=== PATIENT | male | born 1935 | race Caucasian/White ===

== ENCOUNTER 2016-12-10 17:11 | Observation (INO) | payer OTHER ==
[~2016-12-10] VITALS: Ht 172.7 cm; Wt 79.9 kg
[~2016-12-10 17:11] MED LIST: ACID CONTROL150 MG PO; ADULT LOW DOSE81 M1 PO; AMLODIPINE-ATO1 EACH; APPLE CIDER VI300 MG PO; ASPIR 8181 M1 PO; ASPIR-LOW81 MG PO; ASPIRIN81 M1 PO; ATORVASTATIN CA10 MG PO; CADUET PO; CALCIUM + D 601 EACH PO; CALCIUM + D TA1 EACH PO; CALCIUM 600 +1 EAC1 PO; CALCIUM 600 +1 EAC2 PO; CHERATUSSIN AC473 ML PO; DYAZIDE, MA1 CAPSULE PO; FISH OIL 1,0001 EAC7 PO; FISH OIL SOFTG1 EACH PO; FLOMAX0.4 M1 PO; FLOMAX0.4 MG PO; FLULAVAL; LISINOPRIL20 MG; LO-DOSE ASPIRIN81 M1 PO; LOPRESSOR100 M1 PO; LOPRESSOR25 MG; LOSARTAN POTASS50 MG PO; MEN'S MULTI-VI1 EACH PO; METOPROLOL SUCC25 MG PO; METOPROLOL TAR100 MG PO; METOPROLOL TART25 MG; METOPROLOL TART50 MG PO; MULTI COMPLETE1 EACH PO; NITROSTAT0.4 MG; NITROSTAT0.4 MG SL; OMEGA III EPA1000 MG PO; OMEGA-31000 M1 PO; OMNICEF300 MG PO; ONE DAILY FOR1 EAC2 PO; ONE DAILY MULT1 EAC1 PO; ONE-A-DAY ESSE1 EAC1 PO; PANTOPRAZOLE SO40 MG; PANTOPRAZOLE SO40 MG PO; PRINIVIL20 MG PO; PROTONIX40 MG PO; SALINE NASAL SP45 ML BOTH NARES; TAMSULOSIN HCL0.4 MG; TAMSULOSIN HCL0.4 MG PO; THERAGRAN1 TABLET PO; XARELTO20 MG PO; ZANTAC150 M1 PO; ZESTRIL,PRINIVI20 MG PO
[2016-12-10 18:49] LABS: HEMATOCRIT 32.2 % (38.0-50.0); MCH 30.4 PG (29.0-34.0); MCHC 32.9 G/DL (30.0-36.0); MCV 92.3 FL (86-99); MEAN PLAT.VOLUME 10.2 uM^3 (9.0-12.4); PLATELET COUNT 210 K/uL (156-360); RBC DIS.WIDTH-CV 12.5 % (11.8-14.6); RED BLOOD COUNT 3.49 M/uL (4.00-5.50); WHITE BLOOD COUNT 5.3 K/uL (4.1-10.2)
[2016-12-10 19:01] LABS: INTER. NORMALIZED RATIO 1.1; PROTHROMBIN TIME 11.4 (9.2-11.2); PTT 27.3 (25-32)
[2016-12-10 19:10] LABS: TROP-I INTERPRETATION NEGATIVE; TROPONIN-I < 0.01 ng/mL (0.0-0.30)
[2016-12-10 19:24] LABS: CHLORIDE 100 mEq/L (99-109); POTASSIUM 4.4 mEq/L (3.7-5.4); SODIUM 132 mEq/L (136-147)
[2016-12-10 19:26] LABS: GLUCOSE 98 mg/dL (70-99)
[2016-12-10 19:27] LABS: ANION GAP 8 MEQ/L (2-14)
[2016-12-10 19:30] LABS: GFR ESTIMATE (CALCULATED) > 59 mL/min/
[2016-12-10 19:31] LABS: UREA NITROGEN (BUN) 27 mg/dL (9-23)
[2016-12-10] MEDS ORDERED: FISH OIL300 MG PO (19:37)
[2016-12-10] MEDS ORDERED: AMITIZA24 MICROGR PO (19:39)
[2016-12-10] MEDS ORDERED: RANITIDINE HCL150 M1 PO (19:41)
[2016-12-10] MEDS ORDERED: ZANTAC150 MG PO (23:00)
[2016-12-10] MEDS ORDERED: DICYCLOMINE HCL10 MG PO (23:01)
[2016-12-10] MEDS ORDERED: TYLENOL REGULA325 MG PO (23:01)
[2016-12-10 23:33] VITALS: BP 155/67
[2016-12-11 00:47] LABS: TROP-I INTERPRETATION NEGATIVE; TROPONIN-I 0.01 ng/mL (0.0-0.30)
[2016-12-11 03:55] VITALS: BP 122/56
[2016-12-11 06:46] LABS: EOSINOPHIL (%) 2.3 % (0-5); EOSINOPHIL COUNT 0.1 K/uL (0-0.3); IMMATURE GRANULOCYTE (%) 0.2 % (0.0-0.7); LYMPHOCYTE COUNT 1.1 K/uL (1.0-2.8); MCHC 33.7 G/DL (30.0-36.0); MEAN PLAT.VOLUME 10.2 uM^3 (9.0-12.4); MONOCYTE (%) 8.5 % (3-12); MONOCYTE COUNT 0.4 K/uL (0-0.8); NEUTROPHIL (%) 65.7 % (45-76); NEUTROPHIL COUNT 3.2 K/uL (1.8-6.4); PLATELET COUNT 188 K/uL (156-360); RBC DIS.WIDTH-CV 12.9 % (11.8-14.6); RBC DIS.WIDTH-SD 43.7 % (39-53); RED BLOOD COUNT 3.26 M/uL (4.00-5.50); WHITE BLOOD COUNT 4.9 K/uL (4.1-10.2)
[2016-12-11 07:15] LABS: TROP-I INTERPRETATION NEGATIVE; TROPONIN-I 0.02 ng/mL (0.0-0.30)
[2016-12-11 07:20] LABS: ANION GAP 9 MEQ/L (2-14); CHLORIDE 100 MEQ/L (99-109); GFR ESTIMATE (CALCULATED) > 59 mL/min/; GLUCOSE 86 mg/dL (70-99); IRON 94 MCG/DL (35-150); POTASSIUM 4.5 MEQ/L (3.7-5.4); SAMPLE HEMOLYSIS CHECK 0; SAMPLE ICTERIC CHECK 0; SAMPLE LIPEMIA CHECK 0; SODIUM 132 MEQ/L (136-147); UREA NITROGEN (BUN) 25 mg/dL (9-23)
[2016-12-11 08:28] VITALS: BP 154/68
[2016-12-11 12:39] VITALS: BP 158/69
== END 2016-12-11 13:17 | disposition home or self-care (01) ==
LOC: EME 17:11 → EDOF 21:44 → 5WEST 21:44 → EDOF 21:44 → 5WEST 23:17
PROVIDERS: Family Medicine; Physician Assistant
DX: R07.89 Other chest pain (principal); R10.9 Unspecified abdominal pain; I25.10 Atherosclerotic heart disease of native coronary artery without angina pectoris; Z95.5 Presence of coronary angioplasty implant and graft; Z95.0 Presence of cardiac pacemaker; I48.0 Paroxysmal atrial fibrillation; K21.9 Gastro-esophageal reflux disease without esophagitis; I10 Essential (primary) hypertension; K58.9 Irritable bowel syndrome, unspecified; Z87.891 Personal history of nicotine dependence; Z88.8 Allergy status to other drugs, medicaments and biological substances
CPT/HCPCS: 71020; 80048; 83540; 84466; 84484; 85025; 85027; 85610; 85730; 93005; 99281; 99285; G0378

== ENCOUNTER 2017-01-20 11:13 | Emergency (ER) | payer OTHER ==
[~2017-01-20] VITALS: Ht 172.7 cm; Wt 82.8 kg
[~2017-01-20 11:13] MED LIST changes: +AMITIZA24 MICROGR PO; +DICYCLOMINE HCL10 MG PO; +FISH OIL300 MG PO; +RANITIDINE HCL150 M1 PO; +TYLENOL REGULA325 MG PO; +ZANTAC150 MG PO
[2017-01-20 12:02] VITALS: BP 182/78
== END 2017-01-20 12:05 | disposition home or self-care (01) ==
LOC: EME 11:13 → RME 11:13
DX: R04.0 Epistaxis (principal); E78.5 Hyperlipidemia, unspecified; I10 Essential (primary) hypertension; I25.2 Old myocardial infarction; K21.9 Gastro-esophageal reflux disease without esophagitis; Z95.1 Presence of aortocoronary bypass graft; Z98.61 Coronary angioplasty status; Z95.0 Presence of cardiac pacemaker; Z85.828 Personal history of other malignant neoplasm of skin; Z87.891 Personal history of nicotine dependence; Z79.01 Long term (current) use of anticoagulants
CPT/HCPCS: 99281; 99284

== ENCOUNTER 2017-11-12 09:01 | Emergency (ER) | payer OTHER ==
[~2017-11-12] VITALS: Ht 172.7 cm; Wt 82.1 kg
[~2017-11-12 09:01] MED LIST changes: +CYCLOBENZAPRINE5 MG PO; -FISH OIL300 MG PO
[2017-11-12 12:41] VITALS: BP 160/65
== END 2017-11-12 12:42 | disposition home or self-care (01) ==
LOC: EME 09:01
DX: R04.0 Epistaxis (principal); S09.90XA Unspecified injury of head, initial encounter; W22.09XA Striking against other stationary object, initial encounter; Y93.89 Activity, other specified; Y92.810 Car as the place of occurrence of the external cause; K21.9 Gastro-esophageal reflux disease without esophagitis; I10 Essential (primary) hypertension; E78.5 Hyperlipidemia, unspecified; F32.9 Major depressive disorder, single episode, unspecified; I25.2 Old myocardial infarction; Z85.828 Personal history of other malignant neoplasm of skin; Z95.5 Presence of coronary angioplasty implant and graft; Z95.1 Presence of aortocoronary bypass graft; Z95.0 Presence of cardiac pacemaker; Z87.891 Personal history of nicotine dependence; Z88.5 Allergy status to narcotic agent
CPT/HCPCS: 70450; 99281; 99284

== ENCOUNTER 2018-01-11 17:01 | Emergency (ER) | payer OTHER ==
[~2018-01-11] VITALS: Ht 172.7 cm; Wt 81.7 kg
[2018-01-11 17:53] LABS: HEMATOCRIT 31.5 % (38.0-50.0); HEMOGLOBIN 10.8 G/DL (12.5-16.6); MCH 31.8 PG (29.0-34.0); MCHC 34.3 G/DL (30.0-36.0); MCV 92.6 FL (86-99); PLATELET COUNT 193 K/uL (156-360); RBC DIS.WIDTH-CV 12.3 % (11.8-14.6); RBC DIS.WIDTH-SD 42.4 % (39-53); WHITE BLOOD COUNT 5.9 K/uL (4.1-10.2)
[2018-01-11 18:06] LABS: CHLORIDE 98 mEq/L (99-109); POTASSIUM 4.4 mEq/L (3.7-5.4); SODIUM 130 mEq/L (136-147)
[2018-01-11 18:08] LABS: GLUCOSE 109 mg/dL (70-99)
[2018-01-11 18:12] LABS: CREATININE 1.3 mg/dL (0.6-1.3); GFR ESTIMATE (CALCULATED) 56 mL/min/ (58.99-99999)
[2018-01-11 18:14] LABS: TROP-I INTERPRETATION NEGATIVE; TROPONIN-I 0.01 ng/mL (0.0-0.30)
[2018-01-11 18:36] LABS: UREA NITROGEN (BUN) 25 mg/dL (9-23)
[2018-01-11 18:38] LABS: LIPASE 33 U/L (1.0-51.0)
[2018-01-11 20:59] LABS: TROP-I INTERPRETATION NEGATIVE; TROPONIN-I < 0.01 ng/mL (0.0-0.30)
[2018-01-11 21:53] VITALS: BP 165/72
== END 2018-01-11 21:56 | disposition home or self-care (01) ==
LOC: EME 17:01
PROVIDERS: Emergency Medicine
DX: K58.9 Irritable bowel syndrome, unspecified (principal); I45.10 Unspecified right bundle-branch block; I10 Essential (primary) hypertension; K21.9 Gastro-esophageal reflux disease without esophagitis; E78.5 Hyperlipidemia, unspecified; F32.9 Major depressive disorder, single episode, unspecified; I25.2 Old myocardial infarction; Z95.1 Presence of aortocoronary bypass graft; Z95.5 Presence of coronary angioplasty implant and graft; Z95.0 Presence of cardiac pacemaker; Z85.828 Personal history of other malignant neoplasm of skin; Z87.891 Personal history of nicotine dependence; Z88.5 Allergy status to narcotic agent
CPT/HCPCS: 71046; 80048; 83690; 84484; 85027; 93005; 99281; 99285

== ENCOUNTER 2018-04-02 11:34 | Observation (INO) | payer OTHER ==
[~2018-04-02] VITALS: Ht 172.7 cm; Wt 80.7 kg
[2018-04-02 12:10] LABS: HEMATOCRIT 30.8 % (38.0-50.0); HEMOGLOBIN 10.4 G/DL (12.5-16.6); MCH 31.3 PG (29.0-34.0); MCHC 33.8 G/DL (30.0-36.0); MCV 92.8 FL (86-99); PLATELET COUNT 128 K/uL (156-360); RBC DIS.WIDTH-CV 13.4 % (11.8-14.6); RBC DIS.WIDTH-SD 45.9 % (39-53); RED BLOOD COUNT 3.32 M/uL (4.00-5.50); WHITE BLOOD COUNT 5.6 K/uL (4.1-10.2)
[2018-04-02 12:41] LABS: ALBUMIN 3.8 G/DL (3.2-4.8); ALKALINE PHOSPHATASE 54 IU/L (3-129); ALT (GPT) 10 IU/L (3-49); AST (GOT) 14 IU/L (2-34); CHLORIDE 96 MEQ/L (99-109); CREATININE 1.4 MG/DL (0.6-1.3); GFR ESTIMATE (CALCULATED) 52 mL/min/ (58.99-99999); GLUCOSE 107 mg/dL (70-99); POTASSIUM 4.2 MEQ/L (3.7-5.4); SODIUM 126 MEQ/L (136-147); TOTAL BILIRUBIN 0.6 MG/DL (0.0-1.0); UREA NITROGEN (BUN) 24 mg/dL (9-23)
[2018-04-02 12:43] LABS: TROP-I INTERPRETATION NEGATIVE; TROPONIN-I 0.02 ng/mL (0.0-0.30)
[2018-04-02] MEDS ORDERED: ELIQUIS5 MG PO (14:32)
[2018-04-02] MEDS ORDERED: LOW DOSE ASPIRI81 M1 PO (14:35)
[2018-04-02 15:43] VITALS: BP 171/81
[2018-04-02 19:43] VITALS: BP 168/75
[2018-04-02 20:27] LABS: TROP-I INTERPRETATION NEGATIVE; TROPONIN-I 0.03 ng/mL (0.0-0.30)
[2018-04-03 00:33] VITALS: BP 124/57
[2018-04-03 00:38] VITALS: BP 118/75
[2018-04-03 01:04] LABS: TROP-I INTERPRETATION NEGATIVE; TROPONIN-I 0.02 ng/mL (0.0-0.30)
[2018-04-03 04:07] VITALS: BP 156/69
[2018-04-03 04:33] LABS: HEMATOCRIT 28.3 % (38.0-50.0); HEMOGLOBIN 9.6 G/DL (12.5-16.6); MCH 31.8 PG (29.0-34.0); MCHC 33.9 G/DL (30.0-36.0); MCV 93.7 FL (86-99); PLATELET COUNT 115 K/uL (156-360); RBC DIS.WIDTH-CV 13.5 % (11.8-14.6); RBC DIS.WIDTH-SD 46.5 % (39-53); RED BLOOD COUNT 3.02 M/uL (4.00-5.50); WHITE BLOOD COUNT 6.4 K/uL (4.1-10.2)
[2018-04-03 04:42] LABS: ALBUMIN 3.5 g/dL (3.2-4.8); CHLORIDE 105 mEq/L (99-109); POTASSIUM 4.6 mEq/L (3.7-5.4)
[2018-04-03 04:45] LABS: TOTAL PROTEIN 5.2 g/dL (6.4-8.3)
[2018-04-03 04:46] LABS: TOTAL BILIRUBIN 0.4 mg/dL (0.0-1.0)
[2018-04-03 04:48] LABS: CREATININE 1.4 mg/dL (0.6-1.3); GFR ESTIMATE (CALCULATED) 52 mL/min/ (58.99-99999)
[2018-04-03 04:50] LABS: AST (GOT) 17 IU/L (2-34)
[2018-04-03 04:52] LABS: GLUCOSE 100 mg/dL (70-99)
[2018-04-03 04:53] LABS: TROP-I INTERPRETATION NEGATIVE; TROPONIN-I 0.02 ng/mL (0.0-0.30)
[2018-04-03 04:56] LABS: ALKALINE PHOSPHATASE 51 IU/L (3-129)
[2018-04-03 04:57] LABS: UREA NITROGEN (BUN) 24 mg/dL (9-23)
[2018-04-03 04:59] LABS: ALT (GPT) 13 IU/L (3-49); SODIUM 133 mEq/L (136-147)
[2018-04-03 08:00] VITALS: BP 161/69
[2018-04-03 11:38] VITALS: BP 143/66
== END 2018-04-03 15:23 | disposition home or self-care (01) ==
LOC: EME 11:34 → 4SOUTH 13:52 → ENRESERV 13:52 → EDOF 13:52 → ENRESERV 14:32 → 4SOUTH 15:23
PROVIDERS: Emergency Medicine; Emergency Medicine Emergency Medical Services; Internal Medicine
DX: R07.9 Chest pain, unspecified (principal); I25.10 Atherosclerotic heart disease of native coronary artery without angina pectoris; Z95.1 Presence of aortocoronary bypass graft; Z95.0 Presence of cardiac pacemaker; I10 Essential (primary) hypertension; E78.5 Hyperlipidemia, unspecified; I48.2 Chronic atrial fibrillation; D64.9 Anemia, unspecified; E87.1 Hypo-osmolality and hyponatremia; K21.9 Gastro-esophageal reflux disease without esophagitis; Z88.5 Allergy status to narcotic agent; Z72.0 Tobacco use; Z79.82 Long term (current) use of aspirin
CPT/HCPCS: 71045; 80048; 80053; 83880; 84484; 85027; 93005; 99281; 99285; G0378; J7030; J7040